=== PATIENT | female | born 1990 | race Caucasian/White ===

== ENCOUNTER 2022-12-20 23:41 | Emergency (ER) | payer MEDICAID ==
[~2022-12-20] VITALS: Ht 165.1 cm; Wt 63.0 kg
[2022-12-20 23:49] VITALS: BP 130/83; PULSE 89; RESP 16; TEMP 100; O2SAT 97
[2022-12-21] MEDS ORDERED: LIDOCAINE HCL/PF 1% 10 MG/ML 5ML VIAL INFIL ONE (01:00)
[2022-12-21] MEDS ORDERED: BACITRACIN ZINC OINT UDPKT TOP ONE (01:00)
== END 2022-12-21 05:47 | disposition left against medical advice (07) ==
LOC: ER 12-21
DX: S51.012A Laceration without foreign body of left elbow, initial encounter (principal); W18.39XA Other fall on same level, initial encounter; Y93.89 Activity, other specified; Y92.89 Other specified places as the place of occurrence of the external cause; Y99.8 Other external cause status
CPT/HCPCS: 73080; 99283